=== PATIENT | female | born 1970 | race Caucasian/White ===

== ENCOUNTER 2016-10-22 06:53 | Day surgery (SDC) | payer MEDICAID ==
[2016-10-21 10:55] VITALS: Ht 157.5 cm; Wt 77.0 kg
[~2016-10-22] VITALS: Ht 157.5 cm; Wt 77.0 kg
[2016-10-22] VITALS (15 sets, daily range): BP systolic 100–156; BP diastolic 47–74; PULSE 75–88; RESP 14–20
[~2016-10-22 06:53] MED LIST: FAMO20TA18 PO; HYDR-906 PO; OMEP40CA6 PO; ONDA4TAB8 PO; SOD CHLORIDE 0.9% 1,000 ML IV SCH; SPIR100T31 PO
[2016-10-22] MEDS ORDERED: BUPIVACAINE 0.5%/EPI (SDV) 30 ML INJ ONE (07:56)
[2016-10-22] MEDS ORDERED: LIDOCAINE 2% (SDV) 5 ML INJ ONE (08:57)
[2016-10-22] MEDS ORDERED: PROPOFOL 20 ML ONE (08:57)
[2016-10-22] MEDS ORDERED: MIDAZOLAM 1 MG/ML 2 ML INJ ONE (08:58)
[2016-10-22] MEDS ORDERED: METOCLOPRAMIDE 10 MG INJ ONE (09:07)
[2016-10-22] MEDS ORDERED: DEXAMETHASONE 4 MG/ML 1 ML INJ ONE (09:07)
[2016-10-22] MEDS ORDERED: ONDANSETRON 4 MG INJ ONE (09:07)
[2016-10-22] MEDS ORDERED: FENTAnyl 50 MCG/ML VIAL ONE (09:07)
[2016-10-22] MEDS ORDERED: CEFAZOLIN 1 GM INJ ONE (09:16)
[2016-10-22] MEDS ORDERED: HYDROmorphONE (0.2 MG/ML) 10ML SYG IV PRN (09:30)
[2016-10-22] MEDS ORDERED: MEPERIDINE 25 MG INJ IV PRN (09:30)
[2016-10-22] MEDS ORDERED: OXYCODONE/ACETAMINOPHEN (5/325) TAB PO PRN (09:30)
[2016-10-22] MEDS ORDERED: ONDANSETRON 4 MG INJ IV PRN (09:30)
[2016-10-22] MEDS ORDERED: FENTAnyl 50 MCG/ML VIAL IV PRN (09:30)
[2016-10-22] MEDS ORDERED: DIPHENHYDRAMINE 50 MG INJ IV PRN (09:30)
[2016-10-22] MEDS ORDERED: PROCHLORPERAZINE 10 MG INJ IV PRN (09:30)
--- NOTE | 2016-10-22 09:47 | OPR ---
DATE OF OPERATION: 10/22/2016 PREOPERATIVE DIAGNOSIS: Right breast mass. POSTOPERATIVE DIAGNOSIS: Right breast mass. OPERATION PERFORMED: Excision of right breast mass. ANESTHESIOLOGIST: . SURGEON: Steven Gar MD RACE STARTER: Sandeep Gray MD INDICATIONS FOR PROCEDURE: The patient is a 46-year-old female who presented with a symptomatic pal pable right breast mass. 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 She requested exc ision. She consented and was scheduled for surgery. DESCRIPTION OF PROCEDURE: The patient was brought to the operating theater, placed under anesthesia . The right breast was prepped and draped in usual sterile fashion. A curvilinear incision was mad e directly over the palpable mass which was between the 9 to 10 o'clock location, approximately 3-4 cm from the nipple areolar border. Subcutaneous tissue was dissected with cautery. The mass was id entified. It was enucleated with a gloved finger and transected and sent for permanent pathologic a nalysis. The wound was irrigated. Minimal bleeding was controlled with cautery, and the skin was r eapproximated with 5-0 PDS suture in subcuticular fashion. Benzoin and Steri-Strips were then appli ed. Patient tolerated procedure well. The estimated blood loss was 5 mL. There were no complicati ons and the patient was transported in stable condition to the recovery room. Dictated By: STEVEN GAR MD TL/NTS Conf#: [id number] DID#: [id number] CC: BRENDAN GRAY MD;*EndCC*
== END 2016-10-22 13:10 | disposition home or self-care (01) ==
LOC: SDS 06:53
PROVIDERS: ATTEND Surgery Surgical Oncology
DX: D24.1 Benign neoplasm of right breast (principal)
CPT/HCPCS: 19120; 84703; 88307; J0690; J1100; J2175; J2250; J2405; J2765; J3010; Z7512; Z7610

== ENCOUNTER 2019-04-12 11:02 | Day surgery (SDC) | payer OTHER ==
--- NOTE | 2019-04-11 18:28 | PREOPHP ---
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 Now, she presents with a left breast mass in the 9 o'clock position near the periphery of the inner breast. Mammogram and ultrasound were performed revealing a lesion 10 cm from the nipple 9 o'clock left breast, 1.7 x 1.5 x 0.7 cm. 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 She is scheduled to undergo excision of her left breast mass. The patient first noted it in October of this year and it has been increasing in size and associated with pain since then. MEDICATIONS: 1. Amlodipine for hypertension. 2. Baclofen. 3. Vitamin D. ALLERGIES: 1. CELEBREX causes mild anaphylaxis. 2. She avoids IBUPROFEN. PAST SURGICAL HISTORY: Right breast biopsy 2016. REVIEW OF SYSTEMS: 2, para 2. She has regular menstrual periods. PHYSICAL EXAMINATION: GENERAL: The patient is 5 feet 1 inch, 178 pounds VITAL SIGNS: Within normal limits. HEENT: Within normal limits. LUNGS: Clear. HEART: Regular rhythm. BREASTS: Moderate in size and ptotic. The right breast has a wide, slightly tender, thick scar in the outer breast. Examination of the left breast reveals a 2 cm mass near the periphery in the upper outer quadrant. There is no axillary or supraclavicular lymphadenopathy. ABDOMEN: Soft. PELVIC AND RECTAL: Per primary care. EXTREMITIES: Without edema. NEUROLOGIC: Physiologic. 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 PLAN: Excision of left breast mass. I have had a full discussion with the patient regarding the nature of the condition, the nature of the surgery, indications, alternatives, options and risks including bleeding, infection, scarring, distortion of breast or nipple, need for additional procedures or treatments based on final pathology, et cetera. She understands and agrees to proceed. Dictated By: FLORA ROONEY/CHIOMA Conf#: [id number] DID#: [id number] MTDÁngela
[~2019-04-12] VITALS: Ht 157.5 cm; Wt 81.8 kg
[2019-04-12] VITALS (13 sets, daily range): BP systolic 114–139; BP diastolic 62–78; PULSE 70–84; RESP 13–22; Ht 157.5 cm; Wt 81.8 kg
[~2019-04-12 11:02] MED LIST changes: -HYDR-906 PO; -ONDA4TAB8 PO; -SOD CHLORIDE 0.9% 1,000 ML IV SCH; -SPIR100T31 PO; +SPIR100T4 PO
[2019-04-12] MEDS ORDERED: SPIR50TA PO (11:42)
[2019-04-12] MEDS ORDERED: ERGO2000 PO (11:43)
[2019-04-12] MEDS ORDERED: AMLO5TAB4 PO (11:43)
[2019-04-12] MEDS ORDERED: FLUT16SP17 NASAL (11:44)
[2019-04-12] MEDS ORDERED: LORA10TA3 PO (11:44)
--- NOTE | 2019-04-12 12:17 | PREAC ---
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 not on B-Bennie Reported Medications Loratadine* (Loratadine*) 10 Mg Tablet, 10 MG PO DAILY, #30 TAB 04/12/19 Fluticasone Propionate* (Fluticasone Propionate* Nasal) 50 Mcg/[place] - 16 Gm [place].susp, 2 SPRAYS NASAL DAILY, #1 BOTTLE TO EACH NOSTRIL 04/12/19 Ergocalciferol (Vitamin D2) (VITAMIN D2) 2,000 Unit Tablet, 4000 UNIT PO DAILY, TAB 04/12/19 Amlodipine Besylate* (Norvasc*) 5 Mg Tablet, 5 MG PO DAILY, TAB 04/12/19 Spironolactone* (Aldactone*) 50 Mg Tablet, 50 MG PO DAILY, #30 TAB 04/12/19 Discontinued Reported Medications Famotidine* (Famotidine*) 20 Mg Tablet, 20 MG PO BID, #60 TAB 10/21/16 Omeprazole* (Omeprazole*) 40 Mg Capsule.dr, 40 MG PO DAILY, #30 CAP 10/21/16 Spironolactone* (Spironolactone*) 100 Mg Tablet, 50 MG PO DAILY, TAB 10/21/16 Current Medications Cefazolin Sodium/ Dextrose 50 ml @ 100 mls/hr PREOP IVPB ; Start 04/13/19 at 06:30; Stop 04/13/19 at 18:00 Sodium Chloride 1,000 ml @ 75 mls/hr [id number] IV ; Start 04/13/19 at 06:30; Stop 04/13/19 at 20:00 Meds reviewed: Yes Allergies Coded Allergies: celecoxib (Verified Allergy, Unknown, PALIPATIONS, 04/12/19) ibuprofen (Verified Allergy, Unknown, RASH, 04/12/19) Allergies Reviewed: Yes Labs/Studies Labs Reviewed: Reviewed by anesthesiologist test: Negative Pre-procedure Exam Airway: Adequate mouth opening, Adequate thyromental dist Mallampati: Mallampati II Teeth: Normal Lung: Normal Heart: Normal ASA Physical Status ASA physical status: 2 Emergency: None Planned Anesthetic General/MAC: LMA Planned Pain Management Parenteral pain med Pre-operative Attestations Prior to commencing anesthesia and surgery, the patient was re-evaluated, there was verification of: *The patient's identity *The results of appropriate recent lab work and preoperative vital signs *The above evaluation not changing prior to induction *Anesthetic plan, risk benefits, alternative and complications discussed with patient/family; questions answered; patient/family understands, accepts and wishes to proceed. VIOLETA COBB MD Apr 12, 2019 12:17
[2019-04-12] MEDS ORDERED: BUPIVACAINE 0.5% (SDV) 30 ML INJ ONE (12:58)
[2019-04-12] MEDS ORDERED: PROPOFOL 20 ML ONE ×2 (13:08→13:31)
[2019-04-12] MEDS ORDERED: LIDOCAINE 2% (SDV) 5 ML INJ ONE (13:08)
[2019-04-12] MEDS ORDERED: FENTAnyl 50 MCG/ML VIAL ONE (13:08)
[2019-04-12] MEDS ORDERED: MIDAZOLAM 1 MG/ML 2 ML INJ ONE (13:08)
[2019-04-12] MEDS ORDERED: DEXAMETHASONE 4 MG/ML 5 ML INJ ONE (13:16)
[2019-04-12] MEDS ORDERED: CEFAZOLIN 1 GM INJ ONE (13:16)
[2019-04-12] MEDS ORDERED: ONDANSETRON 4 MG INJ ONE (13:16)
[2019-04-12] MEDS ORDERED: FAMOTIDINE 20 MG INJ ONE (13:17)
[2019-04-12] MEDS ORDERED: FENTAnyl 50 MCG/ML VIAL IV PRN (13:30)
[2019-04-12] MEDS ORDERED: hydrALAzine 20 MG INJ IV PRN (13:30)
[2019-04-12] MEDS ORDERED: EPHEDrine 25 MG/5 ML SYG IV PRN (13:30)
[2019-04-12] MEDS ORDERED: DIPHENHYDRAMINE 50 MG INJ IV PRN (13:30)
[2019-04-12] MEDS ORDERED: LABETALOL HCL 20MG INJ IV PRN (13:30)
[2019-04-12] MEDS ORDERED: MEPERIDINE 25 MG INJ IV PRN (13:30)
[2019-04-12] MEDS ORDERED: PROCHLORPERAZINE 10 MG INJ IV PRN (13:30)
[2019-04-12] MEDS ORDERED: ONDANSETRON 4 MG INJ IV PRN (13:30)
[2019-04-12] MEDS ORDERED: OXYCODONE/ACETAMINOPHEN (5/325) TAB PO PRN (13:30)
[2019-04-12] MEDS ORDERED: HYDROmorphONE 1 MG/5 ML IV SYRINGE IV PRN ×3 (13:30)
--- NOTE | 2019-04-12 14:03 | SIPON ---
Date/Time of Note Date/Time of Note DATE: 04/12/19 TIME: 14:00 Operative Report Preoperative Diagnosis left breast mass Postoperative Diagnosis same Operation/Procedure Performed excision of left breast mass Surgeon see signature line per diem physical therapist assistant none Anesthesia: general Estimated blood loss: minimal Transfusion Required none Specimen left breast mass Grafts/Implants none Complications none FLORA OTERO Apr 12, 2019 14:03
--- NOTE | 2019-04-12 14:08 | PAC ---
Date/Time of Note Date/Time of Note DATE: 04/12/19 TIME: 14:07 Post-Anesthesia Notes Post-Anesthesia Note Last documented vital signs Vital Signs Date Temp Pulse Resp B/P (MAP) Pulse Ox O2 O2 Flow FiO2 Time Delivery Rate 04/12/19 98.5 82 18 139/66 96 Room Air 12:26 (90) Activity: WNL Respiratory function: WNL Cardiovascular function: WNL Mental status: Baseline Pain reasonably controlled: Yes Hydration appropriate: Yes Nausea/Vomiting absent: Yes Comments BP: 115/62 HR: 86 RR: 15 T: 98.7 SaO2: 99% VIOLETA COBB MD Apr 12, 2019 14:08
--- NOTE | 2019-04-12 16:58 | OPR ---
DATE OF OPERATION: 04/12/2019 SURGEON: Flora Patton MD SMALL ORDER CUTTER: None. ANESTHESIOLOGIST: Jocelyn Mascorro MD. ANESTHESIA: General. PREOPERATIVE DIAGNOSIS: Left breast mass. POSTOPERATIVE DIAGNOSIS: Left breast mass. OPERATION PERFORMED: Excision of left breast mass. DESCRIPTION OF PROCEDURE: The patient was taken to the operating room and under general anesthesia, with sequential compression device stockings in place, she was prepped and draped in the usual fashio n. Preoperative core biopsy had revealed the lesion to be either a fibroadenoma or phyllodes tumor a nd she had had a previous phyllodes tumor excised from the right breast. The lesion was located in t he very periphery of the inner left breast at 9 o'clock and near the sternal border. A transverse in cision was made, achieving hemostasis with cautery and dissecting flaps circumferentially. One vesse l had to be cauterized. The mass was grasped and enucleated and given to pathology. Hemostasis was carefully achieved with cautery. Marcaine 0.5% plain was infiltrated and the field irrigated. Hemos tasis was secure. Incision was closed with interrupted 3-0 Vicryl deep dermal subcutaneous sutures f ollowed by continuous 4-0 Monocryl subcuticular suture. Tincture of benzoin and 1/2-inch Steri-Strip s were applied, followed by dry sterile dressing. Final sponge and needle counts were correct. The patient tolerated the procedure well and left the operating room in good condition. Dictated By: FLORA ROONEY/CHIOMA Conf#: [id number] [facility]#: [id number]
[2019-04-13] MEDS ORDERED: CEFAZOLIN 2 GM/50 ML (PMX) 50 ML IVPB SCH (06:30)
[2019-04-13] MEDS ORDERED: SOD CHLORIDE 0.9% 1,000 ML IV SCH (06:30)
== END 2019-04-12 15:31 | disposition home or self-care (01) ==
LOC: SDS 11:02
PROVIDERS: ATTEND Surgery
DX: D24.2 Benign neoplasm of left breast (principal); I10 Essential (primary) hypertension
CPT/HCPCS: 19120; J0690; J1100; J2250; J2405; J3010; 88307